=== PATIENT | female | born 1980 | race Caucasian/White ===

== ENCOUNTER → 2023-09-18 | Outpatient (CLI) | payer MEDICAID ==
[~2023-09-18] MED LIST: NORCO 325 MG-51 TAB PO; PREDNISONE20 MG PO; PROTONIX20 MG PO; ZITHROMAX 250M250 MG PO
== END ==
LOC: COL.RAD 11:55
DX: M50.321 Other cervical disc degeneration at C4-C5 level (principal); M50.322 Other cervical disc degeneration at C5-C6 level; M51.36 Other intervertebral disc degeneration, lumbar region; R25.9 Unspecified abnormal involuntary movements; R29.2 Abnormal reflex; R20.2 Paresthesia of skin; R25.1 Tremor, unspecified
CPT/HCPCS: A9575